=== PATIENT | female | born 1965 | race Caucasian/White ===

== ENCOUNTER 2025-03-07 17:23 | Emergency (ER) | payer OTHER, SELFPAY ==
[2025-03-07 17:35] VITALS: BP 140/90
[2025-03-07 17:57] LABS: Hematocrit 43.7 % (37.0-47.0); Hemoglobin 14.3 g/dL (12.0-16.0); Mean Corp Hgb Conc. 32.7 g/dL (33.0-37.0); Mean Corpuscular Volume 85.4 fL (81.0-99.0); Nucleated Red Blood Cells % 0.2 %; Platelet Count 346 10^3/uL (130-400); Red Cell Dist. Width 18.4 % (11.5-14.5)
[2025-03-07 18:12] LABS: ALT (SGPT) 23 U/L (0-35); AST (SGOT) 21 U/L (14-36); Albumin 4.5 g/dl (3.5-5.0); Alkaline Phosphatase 75 U/L (38-126); Blood Urea Nitrogen 9 mg/dl (7-17); Calcium 9.5 mg/dl (8.4-10.2); Carbon Dioxide 25 mmol/L (22-30); Chloride 102 mmol/L (98-107); Glucose 149 mg/dl (70-99); Lipase 16 U/L (23-300); Potassium 4.2 mmol/L (3.5-5.1); Sodium 137 mmol/L (135-145); Total Protein 8.0 g/dl (6.3-8.2); eGFR > 60.00
[2025-03-07 18:24] LABS: Troponin I 0.021 ng/ml
[2025-03-07 20:11] VITALS: BP 134/93
[2025-03-07 20:13] VITALS: BP 134/93; BMI 26.8
[2025-03-07 20:22] LABS: Urine Character Clear (Clear)
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
[2025-03-07] MEDS: ZOFRAN 4 MG IV (21:25)
[2025-03-07] MEDS: MORPHINE SULFATE 4 MG IV (21:26)
[2025-03-07 21:55] VITALS: BP 139/108
[2025-03-07 22:02] VITALS: BP 138/100
[2025-03-07 22:28] LABS: Troponin I 0.019 ng/ml
== END 2025-03-07 23:02 | disposition home or self-care (01) ==
LOC: EMR 17:23
PROVIDERS: Emergency Medicine; Physician Assistant Medical; EMERGENCY PHYSICIAN Student in an Organized Health Care Education/Training Program; FAMILY PHYSICIAN Family Medicine
DX: R11.2 Nausea with vomiting, unspecified (principal); N30.91 Cystitis, unspecified with hematuria; F41.8 Other specified anxiety disorders; J45.909 Unspecified asthma, uncomplicated; Z86.19 Personal history of other infectious and parasitic diseases; Z87.440 Personal history of urinary (tract) infections; Z90.49 Acquired absence of other specified parts of digestive tract
CPT/HCPCS: 99284; 96374; 96375; 74177; 80053; 81003; 81015; 83605; 83690; 84484; 85025; 87040; 93005; Q9967